=== PATIENT | female | born 1955 | race Caucasian/White ===

== ENCOUNTER 2017-09-26 15:54 | Emergency (ER) | payer SELFPAY ==
[2017-09-26] MEDS ORDERED: Ketorolac Tromethamine 30 MG/ML VIAL ONE (16:13)
[2017-09-26] MEDS ORDERED: Sodium Chloride 0.9% 1,000 ML ONE (16:13)
[2017-09-26] MEDS ORDERED: Metoclopramide HCl 10 MG/2 ML VIAL ONE (16:13)
[2017-09-26] MEDS ORDERED: diphenhydrAMINE 50 MG/ML VIAL ONE (16:13)
[2017-09-26] MEDS ORDERED: Sodium Chloride 0.9% 100 ML ONE (16:25)
[2017-09-26] MEDS ORDERED: Insulin Regular 300 UNITS/3 ML VIAL ONE (16:30)
[2017-09-26 16:56] LABS: #Basophils 0.1 thou/uL (0.0-0.2); #Eosinphils 0.2 thou/uL (0.0-0.7); #Lymphocytes 3.5 thou/uL (1.20-3.40); #Monocytes 0.7 thou/uL (0.11-0.59); %Basophils 0.9 % (0.0-1.0); %Eosinophils 2.3 % (0.0-10.0); %Lymphocytes 33.5 % (21.0-51.0); %Monocytes 6.3 % (0.0-10.0); %Neutrophils 56.9 % (42.0-75.0); Hemoglobin 13.4 g/dL (12.0-16.0); Mean Corpuscular HGB CONC 32.6 g/dL (32.0-36.0); Mean Corpuscular Hemoglobin 27.7 pg (27.0-31.0); Mean Corpuscular Volume 85.1 fl (81.0-99.0); Platelet Count 195 thou/uL (130-400); RBC Distribution Width 12.6 % (11.5-14.5); Red Blood Cell (RBC) Count 4.82 mill/uL (4.20-5.40); White Blood Cell (WBC) Count 10.5 thou/uL (4.8-10.8)
[2017-09-26 16:58] LABS: Anion Gap 18 mmol/L (10-20); BUN (Urea Nitrogen) 15 mg/dL (9.8-20.1); Calc. Creatinine Clearance 0 mL/min (70-130); Calcium 9.3 mg/dL (7.8-10.44); Carbon Dioxide 24 mmol/L (23-31); Chloride 97 mmol/L (98-107); Estimated GFR-MDRD 82; Glucose 313 mg/dL (80-115); Potassium 3.8 mmol/L (3.5-5.1); Sodium 135 mmol/L (136-145)
== END 2017-09-26 17:51 | disposition home or self-care (01) ==
LOC: NAV ERS 15:54
DX: I10 Essential (primary) hypertension (principal); R51 Headache; E11.9 Type 2 diabetes mellitus without complications; E78.5 Hyperlipidemia, unspecified; Z79.4 Long term (current) use of insulin; Z79.82 Long term (current) use of aspirin; Z79.899 Other long term (current) drug therapy
CPT/HCPCS: 36416; 80048; 85025; 96361; 96365; 96375; J1200; J1815; J1885; J2765; J7050

== ENCOUNTER 2018-06-02 07:21 | Emergency (ER) | payer OTHER, SELFPAY ==
[2018-06-02] MEDS ORDERED: Nitroglycerin 2% Ointment 1 INCH/1 GM Packet ONE (07:46)
[2018-06-02 07:54] LABS: #Basophils 0.1 thou/uL (0.0-0.2); #Eosinphils 0.2 thou/uL (0.0-0.7); #Lymphocytes 2.6 thou/uL (1.20-3.40); #Monocytes 0.4 thou/uL (0.11-0.59); #Neutrophils 3.5 thou/uL (1.40-6.50); %Basophils 1.1 % (0.0-1.0); %Eosinophils 2.7 % (0.0-10.0); %Lymphocytes 38.2 % (21.0-51.0); %Monocytes 5.3 % (0.0-10.0); %Neutrophils 52.7 % (42.0-75.0); Hemoglobin 13.2 g/dL (12.0-16.0); Mean Corpuscular HGB CONC 31.8 g/dL (32.0-36.0); Mean Corpuscular Hemoglobin 27.8 pg (27.0-31.0); Mean Corpuscular Volume 87.6 fL (78.0-98.0); Mean Platelet Volume 8.3 fL (7.4-10.4); Platelet Count 200 thou/uL (130-400); Red Blood Cell (RBC) Count 4.73 mill/uL (4.20-5.40); White Blood Cell (WBC) Count 6.7 thou/uL (4.8-10.8)
[2018-06-02 08:05] LABS: ALT (SGPT) 26 U/L (8-55); AST (SGOT) 21 U/L (5-34); Alkaline Phosphatase 69 U/L (40-150); Anion Gap 16 mmol/L (10-20); BUN (Urea Nitrogen) 12 mg/dL (9.8-20.1); Bilirubin, Total 0.4 mg/dL (0.2-1.2); CK (CPK) 83 U/L (29-168); Calc. Creatinine Clearance 0 mL/min (70-130); Calcium 9.5 mg/dL (7.8-10.44); Carbon Dioxide 24 mmol/L (23-31); Chloride 100 mmol/L (98-107); Estimated GFR-MDRD 63; Globulin 3.2 g/dL (2.4-3.5); Glucose 507 mg/dL (80-115); Protein, Total 7.2 g/dL (6.0-8.3); Sodium 136 mmol/L (136-145)
[2018-06-02 08:06] LABS: CKMB 1.3 ng/mL (0-6.6); Troponin I 0.034 ng/mL (< 0.028)
[2018-06-02] MEDS ORDERED: Insulin Regular 300 UNITS/3 ML VIAL ONE (08:31)
[2018-06-02] MEDS ORDERED: Sodium Chloride 0.9% 1,000 ML ONE (08:31)
[2018-06-02] MEDS ORDERED: Enoxaparin Sodium 100 MG/ML SYRINGE ONE (08:31)
--- NOTE | 2018-06-02 09:16 | RAD ---
CHEST 1 VIEW: Date: 06/02/18 HISTORY: Chest pain. COMPARISON: None. FINDINGS: Lungs are hypoinflated. Heart size is mildly enlarged. Evaluation of the left lung base is limited. IMPRESSION: Limited examination due to technique. Mild cardiomegaly. POS: [facility]
== END 2018-06-02 08:57 | disposition short-term general hospital (02) ==
LOC: NAV ERS 07:21
DX: I20.0 Unstable angina (principal); E11.65 Type 2 diabetes mellitus with hyperglycemia; I10 Essential (primary) hypertension; R94.31 Abnormal electrocardiogram [ECG] [EKG]; E78.5 Hyperlipidemia, unspecified; Z79.4 Long term (current) use of insulin; Z79.899 Other long term (current) drug therapy
CPT/HCPCS: 71045; 80053; 82553; 84484; 85025; 85379; 93005; 96372; 96374; J1650; J1815; J7050

== ENCOUNTER 2021-05-02 19:45 | Emergency (ER) | payer BC, MEDICARE | END 2021-05-02 20:45 | disposition home or self-care (01) | LOC: NAV ERS 19:45 | DX: S43.401A Unspecified sprain of right shoulder joint, initial encounter (principal); S29.011A Strain of muscle and tendon of front wall of thorax, initial encounter; S29.012A Strain of muscle and tendon of back wall of thorax, initial encounter; E11.9 Type 2 diabetes mellitus without complications; E78.5 Hyperlipidemia, unspecified; E78.00 Pure hypercholesterolemia, unspecified; I10 Essential (primary) hypertension; E66.9 Obesity, unspecified; Z79.4 Long term (current) use of insulin; Z79.84 Long term (current) use of oral hypoglycemic drugs; Z79.82 Long term (current) use of aspirin; Z79.899 Other long term (current) drug therapy; W17.89XA Other fall from one level to another, initial encounter ==

== ENCOUNTER 2021-08-21 10:21 | Emergency (ER) | payer BC, MEDICARE ==
[2021-08-21] MEDS ORDERED: Indomethacin 25 mg Capsule ONE (13:43)
== END 2021-08-21 13:53 | disposition home or self-care (01) ==
LOC: NAV ERS 10:21
DX: M25.532 Pain in left wrist (principal); E11.9 Type 2 diabetes mellitus without complications; E78.5 Hyperlipidemia, unspecified; E78.00 Pure hypercholesterolemia, unspecified; I10 Essential (primary) hypertension; E66.9 Obesity, unspecified; Z79.899 Other long term (current) drug therapy; Z79.4 Long term (current) use of insulin; Z79.84 Long term (current) use of oral hypoglycemic drugs; Z79.82 Long term (current) use of aspirin

== ENCOUNTER 2021-11-21 10:43 | Emergency (ER) | payer OTHER, BC, MEDICARE | END 2021-11-21 12:20 | disposition home or self-care (01) | LOC: NAV ERS 10:43 | DX: S39.012A Strain of muscle, fascia and tendon of lower back, initial encounter (principal); S60.211A Contusion of right wrist, initial encounter; S70.01XA Contusion of right hip, initial encounter; E11.9 Type 2 diabetes mellitus without complications; E78.5 Hyperlipidemia, unspecified; Z79.4 Long term (current) use of insulin; Z79.899 Other long term (current) drug therapy; W19.XXXA Unspecified fall, initial encounter | CPT/HCPCS: 70450; 72128; 72131 ==

== ENCOUNTER 2022-02-22 11:21 | Emergency (ER) | payer BC, MEDICARE ==
[2022-02-22 11:52] LABS: #Basophils 0.1 thou/uL (0.0-0.2); #Eosinphils 0.3 thou/uL (0.0-0.7); #Monocytes 0.7 thou/uL (0.11-0.59); #Neutrophils 6.9 thou/uL (1.40-6.50); %Basophils 0.8 % (0.0-1.0); %Eosinophils 2.3 % (0.0-10.0); %Lymphocytes 27.1 % (21.0-51.0); %Monocytes 5.9 % (0.0-10.0); %Neutrophils 63.8 % (42.0-75.0); Hemoglobin 13.7 g/dL (12.0-16.0); Mean Corpuscular HGB CONC 30.4 g/dL (32.0-36.0); Mean Corpuscular Hemoglobin 27.1 pg (27.0-31.0); Mean Corpuscular Volume 89.3 fL (78.0-98.0); Mean Platelet Volume 8.1 fL (7.4-10.4); Platelet Count 257 thou/uL (130-400); RBC Distribution Width 14.6 % (11.5-14.5); Red Blood Cell (RBC) Count 5.06 mill/uL (4.20-5.40); White Blood Cell (WBC) Count 10.9 thou/uL (4.8-10.8)
[2022-02-22 12:06] LABS: ALT (SGPT) 19 U/L (8-55); AST (SGOT) 14 U/L (5-34); Albumin 4.4 g/dL (3.4-4.8); Alkaline Phosphatase 90 U/L (40-110); Anion Gap 18 mmol/L (10-20); BUN (Urea Nitrogen) 17 mg/dL (9.8-20.1); Bilirubin, Total 0.5 mg/dL (0.2-1.2); Calc. Creatinine Clearance 0 mL/min (70-130); Calcium 9.9 mg/dL (7.8-10.44); Carbon Dioxide 24 mmol/L (23-31); Chloride 101 mmol/L (98-107); Estimated GFR 76; Globulin 3.7 g/dL (2.4-3.5); Glucose 300 mg/dL (80-115); Potassium 3.7 mmol/L (3.5-5.1); Protein, Total 8.1 g/dL (5.8-8.1); Sodium 139 mmol/L (136-145)
[2022-02-22] MEDS ORDERED: Sodium Chloride 0.9% 1,000 ML ONE (13:20)
[2022-02-22] MEDS ORDERED: Ketorolac Tromethamine 30 MG/ML VIAL ONE (13:30)
[2022-02-22 13:54] LABS: Bilirubin Negative (Negative); Blood, Urine Negative (Negative); Glucose, Urine (Dipstick) >=1000 mg/dL (Negative); Ketone, Urine Negative (Negative); Leukocyte Negative (Negative); Nitrite Negative (Negative); Protein, Urine (Dipstick) Negative (Neg-Trace); Specific Gravity, Urine 1.015 (1.005-1.030); Urobilinogen 0.2 mg/dL (Less than 2)
[2022-02-22 13:56] LABS: Clarity Hazy (Clear)
== END 2022-02-22 13:46 | disposition home or self-care (01) ==
LOC: NAV ERS 11:21
DX: F07.81 Postconcussional syndrome (principal); G44.309 Post-traumatic headache, unspecified, not intractable; E11.65 Type 2 diabetes mellitus with hyperglycemia; E78.5 Hyperlipidemia, unspecified; I10 Essential (primary) hypertension; Z79.4 Long term (current) use of insulin; Z79.899 Other long term (current) drug therapy
CPT/HCPCS: 36416; 70450; 71045; 80053; 81003; 83880; 84484; 85025; 93005; 94760; 96361; 96374; J1885; J7050

== ENCOUNTER 2023-04-08 09:34 | Emergency (ER) | payer BC, MEDICARE ==
[2023-04-08] MEDS ORDERED: Aspirin Chewable 81 MG TAB ONE (10:23)
[2023-04-08 10:24] LABS: ALT (SGPT) 12 U/L (8-55); AST (SGOT) 11 U/L (5-34); Albumin 4.2 g/dL (3.4-4.8); Alkaline Phosphatase 88 U/L (40-110); Anion Gap 15 mmol/L (10-20); BUN (Urea Nitrogen) 18 mg/dL (9.8-20.1); Bilirubin, Total 0.4 mg/dL (0.2-1.2); Calc. Creatinine Clearance 0 mL/min (70-130); Calcium 9.5 mg/dL (7.8-10.44); Carbon Dioxide 24 mmol/L (23-31); Chloride 102 mmol/L (98-107); Estimated GFR 67; Globulin 3.1 g/dL (2.4-3.5); Glucose 191 mg/dL (80-115); Lipase 18 U/L (8-78); Potassium 4.3 mmol/L (3.5-5.1); Protein, Total 7.3 g/dL (5.8-8.1); Sodium 137 mmol/L (136-145); Troponin I Less than 0.010 ng/mL (< 0.028)
[2023-04-08 10:32] LABS: #Eosinphils 0.2 thou/uL (0.0-0.7); #Lymphocytes 2.2 thou/uL (1.20-3.40); #Monocytes 0.5 thou/uL (0.11-0.59); #Neutrophils 4.4 thou/uL (1.40-6.50); %Basophils 0.6 % (0.0-1.0); %Eosinophils 2.8 % (0.0-10.0); %Lymphocytes 29.6 % (21.0-51.0); %Monocytes 6.5 % (0.0-10.0); %Neutrophils 60.5 % (42.0-75.0); Hemoglobin 12.7 g/dL (12.0-16.0); Mean Corpuscular HGB CONC 31.8 g/dL (32.0-36.0); Mean Corpuscular Hemoglobin 26.8 pg (27.0-31.0); Mean Corpuscular Volume 84.3 fl (78.0-98.0); Mean Platelet Volume 7.1 fL (7.4-10.4); Platelet Count 193 10x3/uL (130-400); RBC Distribution Width 14.2 % (11.5-14.5); Red Blood Cell (RBC) Count 4.75 mill/uL (4.20-5.40); White Blood Cell (WBC) Count 7.3 10x3/uL (4.8-10.8)
[2023-04-08] MEDS ORDERED: Nitroglycerin 2% Ointment 1 INCH/1 GM Packet ONE (12:43)
[2023-04-08 13:26] LABS: Troponin I Less than 0.010 ng/mL (< 0.028)
== END 2023-04-08 14:50 | disposition short-term general hospital (02) ==
LOC: NAV ERS 09:34
DX: R07.9 Chest pain, unspecified (principal); R06.09 Other forms of dyspnea; R42 Dizziness and giddiness; I10 Essential (primary) hypertension; E11.9 Type 2 diabetes mellitus without complications; E78.5 Hyperlipidemia, unspecified; Z79.84 Long term (current) use of oral hypoglycemic drugs; Z79.4 Long term (current) use of insulin; Z79.899 Other long term (current) drug therapy
CPT/HCPCS: 71045; 80053; 83690; 83880; 84484; 85025; 93005